=== PATIENT | female | born 1970 | race African-American/Black ===

== ENCOUNTER 2025-04-11 08:48 | Emergency (ER) | payer MEDICAID ==
[~2025-04-11] VITALS: Ht 167.6 cm; Wt 150.0 kg
[2025-04-11 08:50] VITALS: BP 135/70; PULSE 82; RESP 16; TEMP 98.1; O2SAT 100
== END 2025-04-11 09:22 | disposition left against medical advice (07) ==
LOC: ER 08:48
DX: R10.9 Unspecified abdominal pain (principal)
CPT/HCPCS: 99283